=== PATIENT | female | born 1990 | race Caucasian/White ===

== ENCOUNTER → 2023-01-15 | Outpatient (CLI) | payer BC | LOC: RAD 16:08 | DX: M54.2 Cervicalgia (principal) ==

== ENCOUNTER → 2024-05-14 | Outpatient (CLI) | payer BC ==
[2024-05-14 11:23] LABS: BASO # 0.02 K/mm3 (0.02-0.10); EOS # 0.13 K/mm3 (0.04-0.40); EOS % 2.7 % (1.0-5.0); HEMOGLOBIN 13.6 g/dL (12.5-16.0); LYMPH# 1.96 K/mm3 (1.50-4.00); MEAN CELL VOLUME 89 fl (78-100); MEAN CORPUSCULAR HEMOGLOBIN 31 pg (27-31); MEAN CORPUSCULAR HGB CONC 35 g/dL (33-37); MEAN PLATELET VOLUME 10.4 fl (7.4-10.4); MONO # 0.29 K/mm3 (0.20-0.80); NEU # 2.39 K/mm3 (1.40-6.50); PLATELET COUNT 180 K/mm3 (130-400); RED BLOOD COUNT 4.36 M/mm3 (4.10-5.30); RED CELL DISTRIBUTION WIDTH 12.4 % (11.5-14.5); WHITE BLOOD COUNT 4.8 K/mm3 (4.8-10.8)
[2024-05-14 11:37] LABS: ALBUMIN 4.2 g/dL (3.5-5.0)
[2024-05-14 11:38] LABS: CALCIUM 9.2 mg/dL (8.3-10.5)
[2024-05-14 11:40] LABS: TOTAL PROTEIN 6.9 g/dL (6.4-8.3)
[2024-05-14 11:41] LABS: TOTAL BILIRUBIN 0.4 mg/dL (0.2-1.2)
== END ==
LOC: LAB 11:08
PROVIDERS: Nurse Practitioner Family
DX: R10.819 Abdominal tenderness, unspecified site (principal); R10.13 Epigastric pain